=== PATIENT | female | born 1975 | race Caucasian/White ===

== ENCOUNTER 2018-05-05 19:55 | Emergency (ER) | payer SELFPAY ==
[2018-05-05 20:06] VITALS: BP 124/87; PULSE 84; TEMP 98.1; O2SAT 98
--- NOTE | 2018-05-05 21:33 | C.PDOC ---
History Of Present Illness The patient reports that she slipped down the stairs and twisted the right ankle at 7am today. Denies other injuries, numbness, or weakness. Time Seen by Provider: 05/05/18 20:23 Chief Complaint (Nursing): Lower Extremity Problem/Injury History Per: Patient History/Exam Limitations: no limitations Onset/Duration Of Symptoms: Persistent Current Symptoms Are (Timing): Still Present Severity: Mild Pain Scale Rating Of: 5 Recent travel outside of the [place]: No - Ankle/Foot Currently Unable To: Bear Weight Alleviating Factor(s): Ice Therapy, Elevation Past Medical History Reviewed: Historical Data, Nursing Documentation, Vital Signs Vital Signs: Last Vital Signs Temp 98.1 F 05/05/18 20:03 Pulse 84 05/05/18 20:03 Resp 20 05/05/18 21:59 BP 124/87 05/05/18 20:03 Pulse Ox 98 05/05/18 21:33 - Medical History PMH: Asthma Family History: States: Unknown Family Hx - Social History Hx Tobacco Use: Yes (6 CIGARETTS/DAY) Hx Alcohol Use: Yes (SOCIALLY) Hx Substance Use: No - Immunization History Hx Tetanus Toxoid Vaccination: No Hx Influenza Vaccination: No Hx Pneumococcal Vaccination: No Review Of Systems Except As Marked, All Systems Reviewed And Found Negative. Physical Exam - Physical Exam Appears: Non-toxic, No Acute Distress Skin: Normal Color, Warm, No Rash Head: Atraumatic, Normacephalic Eye(s): bilateral: Normal Inspection, PERRL, EOMI Oral Mucosa: Moist Neck: Normal ROM (0) Chest: Symmetrical Back: No Vertebral Tenderness, No Paraspinal Tenderness Extremity: Normal ROM, Capillary Refill (< 2 sec), No Deformity, Other ((+) tenderness and swelling to the right lateral mallelous) Pulses: Left Dorsalis Pedis: Normal, Right Dorsalis Pedis: Normal Neurological/Psych: Oriented x3, Normal Motor Gait: Steady ED Course And Treatment O2 Sat by Pulse Oximetry: 98 (on Ra) Pulse Ox Interpretation: Normal Medical Decision Making Medical Decision Making: Xrays are negative for fracture or dislocation. Air cast and crutches were applied by technical service specialist and checked by me. Disposition - Disposition Referrals: Ludin Chadwick MD [Staff Provider] - Disposition: HOME/ ROUTINE Disposition Time: 21:28 Condition: GOOD Additional Instructions: Follow up with the medical doctor within 1-2 days, return if worsened. Prescriptions: Ibuprofen [Motrin] 600 mg PO TID #21 tab Instructions: Ankle Sprain (DC) Forms: [facility] (Georgian) - Clinical Impression Clinical Impression: Ankle sprain
[2018-05-05 21:59] VITALS: RESP 20
--- NOTE | 2018-05-06 09:55 | RAD ---
Right ankle three views History: Ankle injury and pain. Comparison: None available. Findings: Prominent lateral malleolar soft tissue swelling. No evidence of acute displaced fracture or dislocation. Productive change with dorsal calcaneal spurring. Osteophytosis at the dorsal aspect of the talonavicular joint space. Impression: Prominent lateral malleolar soft tissue swelling. Degenerative changes. Negative acute. If pain persists, consider MRI.
--- NOTE | 2018-05-06 13:01 | RAD ---
Right tibia and fibula two views History: Injury. Comparison: None available. Findings: No evidence for acute displaced fracture or dislocation. Impression: Negative acute. If pain persists, consider MRI.
== END 2018-05-05 21:59 | disposition home or self-care (01) ==
LOC: C.ER 19:55
DX: S93.401A Sprain of unspecified ligament of right ankle, initial encounter (principal); W10.9XXA Fall (on) (from) unspecified stairs and steps, initial encounter; F17.210 Nicotine dependence, cigarettes, uncomplicated